=== PATIENT | male | born 1965 | race Hispanic/Latino ===

== ENCOUNTER 2017-07-04 06:28 | Day surgery (SDC) | payer BC ==
[~2017-07-04] VITALS: Ht 167.6 cm; Wt 79.3 kg
[~2017-07-04 06:28] MED LIST: CHOL500050 PO; LEVO50TA11 PO; ROSU10TA35 PO
[2017-07-04] MEDS ORDERED: SODIUM CHLORIDE 0.9% 1000ML 1,000 ML IV ONE (06:52)
[2017-07-04 07:00] VITALS: BP 114/77
[2017-07-04] MEDS ORDERED: FENTANYL CITRATE PF 50 MCG/1 ML 2ML VIAL ONE (07:23)
[2017-07-04] MEDS ORDERED: PROPOFOL 10 MG/ML 20ML VIAL IV ONE ×2 (07:23→07:34)
[2017-07-04] MEDS ORDERED: GLYCOPYRROLATE 0.2 MG/ML 5 ML VIAL ONE (07:24)
[2017-07-04 07:46] VITALS: BP 89/51
== END 2017-07-04 08:26 ==
LOC: DAH 06:28
PROVIDERS: ATTEND Internal Medicine Gastroenterology
DX: Z12.11 Encounter for screening for malignant neoplasm of colon (principal); K22.2 Esophageal obstruction; K21.9 Gastro-esophageal reflux disease without esophagitis; E03.9 Hypothyroidism, unspecified; E78.5 Hyperlipidemia, unspecified; Z79.899 Other long term (current) drug therapy; Z80.0 Family history of malignant neoplasm of digestive organs
CPT/HCPCS: 43248; 45378; A4606; J2704 ×2; J3010; J3490; J7030